=== PATIENT | male | born 1955 | race Caucasian/White ===

== ENCOUNTER 2025-06-09 11:00 | Emergency (ER) | payer MEDICARE, SELFPAY ==
[2025-06-09 11:17] VITALS: BP 139/92
[2025-06-09 11:47] LABS: Hematocrit 38.5 % (39.0-52.0); Hemoglobin 13.4 g/dL (13.0-18.0); Mean Corp Hgb Conc. 34.8 g/dL (33.0-37.0); Mean Corpuscular Volume 98.0 fL (80.0-94.0); Nucleated Red Blood Cells % 0 % (-); Platelet Count 218 10^3/uL (130-400); Red Cell Dist. Width 15.1 % (11.5-14.5)
[2025-06-09 11:59] LABS: ALT (SGPT) 47 U/L (0-50); AST (SGOT) 34 U/L (17-59); Albumin 3.8 g/dl (3.5-5.0); Alkaline Phosphatase 117 U/L (38-126); Blood Urea Nitrogen 11 mg/dl (9-20); Calcium 9.5 mg/dl (8.4-10.2); Carbon Dioxide 31 mmol/L (22-30); Chloride 99 mmol/L (98-107); Glucose 146 mg/dl (70-99); Potassium 4.1 mmol/L (3.5-5.1); Sodium 133 mmol/L (135-145); Total Protein 6.4 g/dl (6.3-8.2); eGFR > 60.00
[2025-06-09 12:09] LABS: Troponin I < 0.012 ng/ml
[2025-06-09 12:11] VITALS: BP 157/82
[2025-06-09 13:00] VITALS: BP 127/77
--- NOTE | 2025-06-09 13:27 | ED.GENMED ---
History of Present Illness
General
Chief Complaint: Chest Pain
Source: patient and spouse
Exam Limitations: none
Time Seen by Provider: 06/09/25 12:11
Nursing documentation reviewed up to this point in time: agreed with
History of Present Illness
History of Present Illness:
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
chronic pain meds, no history of CAD, has had some lower extremity edema
Past History
Past History
ED Past Medical History: Cancer
ED Past Surgical History: Orthopedic
Social History
Tobacco: Non-smoker
Review of Systems
Review of Systems
All Other Systems: Not applicable
Constitutional: Denies fever or fatigue
Respiratory: Denies trouble breathing
Cardiac: Reports chest pain
Musculoskeletal: Reports edema
Neurological: Reports no symptoms
Hematologic/Lymphatic: Reports no symptoms
Psychiatric: Reports no symptoms
Phy Exam
Physical Exam
Physical Exam:
Physical Exam
General: 69-year-old male looks nontoxic
Neck: No jaundice
Heart: s1/s2 regular rate and rhythm, no murmur. equal radial pulses.
Lungs: No wheeze
Abdomen: Distended nontender
Neuro: alert and oriented. no focal neurological deficits
Skin: no rash
Psychiatric: well kept. interactive and cooperative
Extremities: Edema is present
Scores
Heart Score for Chest Pain Patients
STEMI patient?: No
History: Slightly or Non-Suspicious
ECG: Nonspecific Repolarization
Age: >/= 65 years
Risk Factors: 1 or 2 Risk Factors
Troponin: </= Normal Limit
Heart Score for Chest Pain Patients: 4
Heart Score Risk: 20.3% MACE over next 6 weeks
Course
Orders/Labs/Results
Orders:
Orders
06/09/25 11:01
Electrocardiogram (*1) Urgent
Reason for Study: Chest Pain
EKG- Treatment ONCE
06/09/25 11:35
Complete Blood Count/With Diff Urgent
Comprehensive Metabolic Panel Urgent
NT-proBNP Urgent
Comment: ADD ON
Troponin I Urgent
Comment: ADD ON
06/09/25 12:31
Add On- LAB Urgent
Tests Added?: pBNP
06/09/25 12:32
CT Chest PE Study Urgent
Comment:
Reason For Exam: sob prostate CA
Magnesium Citrate [Citroma] 300 ml PO ONCE ONE
06/09/25 14:07
Troponin I Urgent
06/09/25 15:07
CeFAZolin 2 GRAM [Ancef] 2 grams in 10 ml IV NOW
06/09/25 15:08
Acetaminophen [Tylenol] 1,000 mg PO NOW STA
Abnormal Lab Results
06/09/25
11:35
RBC 3.93 L 10^6/uL
(4.70-6.10)
Hct 38.5 L %
(39.0-52.0)
MCV 98.0 H fL
(80.0-94.0)
MCH 34.1 H pg
(27.0-31.0)
RDW 15.1 H %
(11.5-14.5)
Lymphocytes % 17.8 L %
(20.5-51.1)
Sodium 133 L mmol/L
(135-145)
Carbon Dioxide 31 H mmol/L
(22-30)
Creatinine 0.6 L mg/dL
(0.7-1.3)
Glucose 146 H mg/dl
(70-99)
06/09/25 11:35
06/09/25 11:35
Vital Signs
Initial and Last Documented VS:
Initial Vital Signs
Temp Pulse Resp BP Pulse Ox
98.3 F 83 18 139/92 97
06/09/25 11:17 06/09/25 11:17 06/09/25 11:17 06/09/25 11:17 06/09/25 11:17
Last Documented Vital Signs
Temp Pulse Resp BP Pulse Ox
98.3 F 82 12 134/91 97
06/09/25 11:17 06/09/25 14:30 06/09/25 14:18 06/09/25 14:18 06/09/25 14:30
MDM/Problems Addressed
Differential Diagnosis Includes:
Heart failure PE effusion metastatic disease less likely ACS
MDM/Problems Addressed:
Chest pain
Chronic conditions affecting care: Cancer
Acute Exacerbation and/or Progression of Chronic Illness: Cancer
*Pulse Oximetry
SaO2: 97
Oxygen Mode of Delivery: Room air
Patient hypoxic: no
*Critical Care Note
Total Time (30-74mins, 75-104mins- exclusive of procedures): Not Applicable
Update Note
Update Note:
2:30 PM update labs noted troponin #[address] of the chest noted most notably no PE does have a mets to the scapula
3 PM update patient appears comfortable allergies are noted unclear if NSAIDs are true allergy or not he did receive a contrast load he has been on a diuretic
On evaluation his legs are warm and red, I offered the patient admission he politely declined states he would like to go home states he has plenty of oxycodone at home, at this point we will have him stop his Lasix, elevate his legs start Keflex
ED Attending Note
-
Portions of this chart may have been created with voice recognition software.� Occasional wrong word or��sound alike� substitutions may have occurred due to the inherent limitations of voice recognition software.
Discharge Plan
Departure
Patient Disposition: Home (Routine Discharge)
Date of Disposition: 06/09/25
Time of Disposition: 15:09
Patient with high blood pressure during this ER visit?: No
Condition: Good
Covid-19: Not Applicable
Discharge Problem:
Cellulitis, Chest pain, Prostate cancer metastatic to bone
Instructions: Chest Pain PCP Follow Up
Referrals:
NONE,* [Family Provider, Internal Medicine]
Interventions
Interventions:
*Risk Screen - Suicide Last Done: 06/09/25 11:17
*General Assessment Last Done: 06/09/25 11:17
*Neglect/Abuse Screening Last Done: 06/09/25 11:17
*ED- Fall Risk Assessment Last Done: 06/09/25 14:18
*ED COVID-19 Vaccine History Last Done: 06/09/25 14:18
ED- Cardiac Assessment Last Done: 06/09/25 14:18
Discharge Date and Time
Print Language: NAURUAN
[2025-06-09] MEDS: CITROMA 300 ML PO (14:04)
[2025-06-09 14:18] VITALS: BP 134/91; BMI 39.1
[2025-06-09 14:55] LABS: Troponin I < 0.012 ng/ml
[2025-06-09 15:32] VITALS: BP 137/71
[2025-06-09] MEDS: TYLENOL 1000 MG PO (15:32)
[2025-06-09] MEDS: ANCEF 10 IV (15:35)
== END 2025-06-09 15:59 | disposition home or self-care (01) ==
LOC: EMR 11:00
PROVIDERS: Emergency Medicine; EMERGENCY PHYSICIAN Emergency Medicine
DX: L03.90 Cellulitis, unspecified (principal); R07.9 Chest pain, unspecified; C61 Malignant neoplasm of prostate; C79.51 Secondary malignant neoplasm of bone; K59.00 Constipation, unspecified
CPT/HCPCS: 99284; 96374; 71275; 80053; 83880; 84484; 85025; 93005; Q9967